=== PATIENT | male | born 1965 | race Two or more races ===

== ENCOUNTER 2019-01-22 11:44 | Day surgery (SDC) | payer MEDICAID ==
[~2019-01-22] VITALS: Ht 170.2 cm; Wt 103.3 kg
[2019-01-22] VITALS (9 sets, daily range): BP systolic 99–127; BP diastolic 66–83
[2019-01-22] MEDS ORDERED: cefazolin/dext.iso 2gm/100ml 100 ML IV ONE (12:10)
[2019-01-22] MEDS ORDERED: normal saline 1000ml 1,000 ML IV SCH ×2 (12:10→14:35)
[2019-01-22] MEDS ORDERED: ATOR40TA PO (12:32)
[2019-01-22] MEDS ORDERED: ASPI-1265 PO (12:32)
[2019-01-22] MEDS ORDERED: MELO-102 PO (12:32)
[2019-01-22] MEDS ORDERED: METF500T PO (12:32)
[2019-01-22] MEDS ORDERED: LISI10TA4 PO (12:32)
[2019-01-22] MEDS ORDERED: METO-395 PO (12:32)
[2019-01-22 13:00] LABS: BASOPHILS % (AUTO) 0.7 % (0-1); EOSINOPHILS # (AUTO) 0.1 X10'3 (0-0.9); EOSINOPHILS % (AUTO) 2.1 % (0-6); HEMATOCRIT 47.9 % (42.0-52.0); HEMOGLOBIN 15.7 g/dl (14.0-17.9); LYMPHOCYTES # (AUTO) 2.7 X10'3 (1.1-4.8); LYMPHOCYTES % (AUTO) 39.5 % (21-51); MEAN CORPUSCULAR HEMOGLOBIN 26.4 PG (27.0-31.0); MEAN CORPUSCULAR HGB CONC 32.7 g/dL (33.0-36.5); MEAN CORPUSCULAR VOLUME 80.9 FL (78-98); MEAN PLATELET VOLUME 9.5 FL (7.4-10.4); MONOCYTES # (AUTO) 0.8 X10'3 (0-0.9); MONOCYTES % (AUTO) 11.1 % (2-12); NEUTROPHILS # (AUTO) 3.2 X10'3 (1.8-7.7); NEUTROPHILS % (AUTO) 46.6 % (42-75); PLATELET COUNT 220 X10'3 (140-440); RED BLOOD COUNT 5.93 X10'6 (4.70-6.10); RED CELL DISTRIBUTION WIDTH 14.4 % (11.5-14.5); WHITE BLOOD COUNT 6.8 X10'3 (4.5-11.0)
[2019-01-22] MEDS ORDERED: fentaNYL/PF 50MCG/1 ML 2ML syringe ONE (13:04)
[2019-01-22] MEDS ORDERED: midazolam 2 mg/2 ml injection ONE ×2 (13:04→13:37)
[2019-01-22] MEDS ORDERED: lidocaine 1%/epinephrine 1:100,000 injection 50ml vial ONE (13:04)
[2019-01-22] MEDS ORDERED: clindamycin phosphate 150mg/ml inj. ONE (13:04)
[2019-01-22] MEDS ORDERED: clindamycin-Cleocin 900mg/D5W 50 ML IV ONE (13:05)
[2019-01-22 13:13] LABS: PARTIAL THROMBOPLASTIN TIME 29 SECONDS (22-32)
[2019-01-22 13:17] LABS: ANION GAP 9 (8-16); BLOOD UREA NITROGEN 14 MG/DL (7-18); BUN/CREATININE RATIO 19.7 (5.4-32.0); CALCIUM 9.1 MG/DL (8.5-10.1); CHLORIDE 107 MMOL/L (99-107); CREATININE 0.71 MG/DL (0.60-1.10); GLUCOSE 108 MG/DL (70-104); POTASSIUM 3.9 MMOL/L (3.5-5.1); SODIUM 141 MMOL/L (135-145); TOTAL CARBON DIOXIDE 25.4 MMOL/L (24-32); eGFR > 90 ML/MIN
[2019-01-22] MEDS ORDERED: ceFAZolin 1GM/D5W- ADD-VANTAGE 50 ML IV SCH (16:00)
[2019-01-22] MEDS ORDERED: HYDROcodone/acetaminophen 5mg/325mg tablet PO ONE (17:20)
== END 2019-01-22 17:25 | disposition home or self-care (01) ==
LOC: SSTAY O 11:44
PROVIDERS: ATTEND Internal Medicine Interventional Cardiology
DX: I50.9 Heart failure, unspecified (principal); I42.8 Other cardiomyopathies; I11.0 Hypertensive heart disease with heart failure; E11.51 Type 2 diabetes mellitus with diabetic peripheral angiopathy without gangrene; I25.2 Old myocardial infarction; Z87.891 Personal history of nicotine dependence; Z79.899 Other long term (current) drug therapy; Z79.82 Long term (current) use of aspirin; R07.9 Chest pain, unspecified; R06.00 Dyspnea, unspecified; I34.0 Nonrheumatic mitral (valve) insufficiency; R00.2 Palpitations
CPT/HCPCS: 33249; 36415; 80048; 85025; 85610; 85730; 93005; 99152; 99153; C1722; C1777; J2250; J3010; J3490; J7030; A4565; A4620

== ENCOUNTER 2023-05-23 13:08 | Day surgery (SDC) | payer MEDICARE, MEDICAID ==
[~2023-05-23] VITALS: Ht 170.2 cm; Wt 104.1 kg
[2023-05-23] VITALS (10 sets, daily range): BP systolic 101–111; BP diastolic 67–81; PULSE 62–69; RESP 12–15; TEMP 98.2; O2SAT 92–98
[~2023-05-23 13:08] MED LIST: ASPI-1265 PO; ATOR40TA PO; LISI10TA27 PO; MELO-102 PO; METF500T PO; METO-395 PO
[2023-05-23] MEDS ORDERED: LORazepam 0.5 MG tablet PO PRN (13:45)
[2023-05-23] MEDS ORDERED: normal saline 1,000 ML IV SCH (13:45)
[2023-05-23] MEDS ORDERED: diphenhydrAMINE 25mg capsule PO PRN (13:45)
[2023-05-23 14:23] LABS: BASOPHILS % (AUTO) 0.5 % (0-1); EOSINOPHILS # (AUTO) 0.2 X10'3 (0-0.9); EOSINOPHILS % (AUTO) 2.3 % (0-6); HEMATOCRIT 50.3 % (42.0-52.0); HEMOGLOBIN 16.5 g/dl (14.0-17.9); LYMPHOCYTES # (AUTO) 2.3 X10'3 (1.1-4.8); LYMPHOCYTES % (AUTO) 31.9 % (21-51); MEAN CORPUSCULAR HEMOGLOBIN 26.9 PG (27.0-31.0); MEAN CORPUSCULAR HGB CONC 32.8 g/dL (33.0-36.5); MONOCYTES # (AUTO) 0.9 X10'3 (0-0.9); NEUTROPHILS # (AUTO) 3.9 X10'3 (1.8-7.7); NEUTROPHILS % (AUTO) 53.3 % (42-75); PLATELET COUNT 199 X10'3 (140-440); RED BLOOD COUNT 6.13 X10'6 (4.70-6.10); RED CELL DISTRIBUTION WIDTH 14.9 % (11.5-14.5); WHITE BLOOD COUNT 7.4 X10'3 (4.5-11.0)
[2023-05-23 14:35] LABS: ALBUMIN 3.9 G/DL (3.4-5.0); ANION GAP 8 (8-16); BLOOD UREA NITROGEN 14 MG/DL (7-18); BUN/CREATININE RATIO 16.5 (10.0-20.0); CALCIUM 9.2 MG/DL (8.5-10.1); CHLORIDE 104 MMOL/L (99-107); CREATININE 0.85 MG/DL (0.60-1.10); GLUCOSE 101 MG/DL (70-104); SODIUM 139 MMOL/L (135-145); TOTAL CARBON DIOXIDE 27.2 MMOL/L (24-32); eCRCL 91 ML/MIN; eGFR > 90 ML/MIN
[2023-05-23 14:36] LABS: INR 1.1 INR; PROTHROMBIN TIME 11.6 SECONDS (9.0-12.0)
[2023-05-23] MEDS ORDERED: CARV25TA PO (14:36)
[2023-05-23] MEDS ORDERED: TRAM50TA2 PO (14:36)
[2023-05-23] MEDS ORDERED: ROSU40TA PO (14:36)
[2023-05-23] MEDS ORDERED: EMPA10TA PO (14:36)
[2023-05-23] MEDS ORDERED: SACU1TAB7 PO (14:36)
[2023-05-23] MEDS ORDERED: EZET10TA6 PO (14:36)
[2023-05-23] MEDS ORDERED: LIDOcaine 1% (10mg/ml) 2ml vial ONE (15:22)
[2023-05-23] MEDS ORDERED: verapamil 2.5 mg/ml inj IV ONE (15:22)
[2023-05-23] MEDS ORDERED: fentaNYL/PF 50MCG/1 ML 2ML syringe ONE (15:23)
[2023-05-23] MEDS ORDERED: heparin 1,000unit/ml 10ml vial 10 ML ONE (15:23)
[2023-05-23] MEDS ORDERED: midazolam 1 mg/ML 2ml injection ONE (15:23)
[2023-05-23] MEDS ORDERED: iohexol 350MG/ML 100ml bottle IV ONE ×2 (15:26→15:45)
[2023-05-23] MEDS ORDERED: clopidogrel 300mg tablet ONE (16:11)
[2023-05-23] MEDS ORDERED: proCHLORperazine 10 MG/2 ml inj IV PRN (17:05)
[2023-05-23] MEDS ORDERED: normal saline 1000ml 1,000 ML IV SCH (17:05)
[2023-05-23] MEDS ORDERED: HYDROcodone/acetaminophen 10/325mg tab PO PRN (17:05)
[2023-05-23] MEDS ORDERED: HYDROcodone/acetaminophen 5mg/325mg tablet PO PRN (17:05)
[2023-05-23] MEDS ORDERED: OXAZEpam 15mg capsule PO PRN (17:05)
[2023-05-23] MEDS ORDERED: ondansetron/PF 4mg/2ml inj IV PRN (17:05)
== END 2023-05-23 19:10 | disposition home or self-care (01) ==
LOC: SSTAY O 13:08
PROVIDERS: ATTEND Student in an Organized Health Care Education/Training Program
DX: R94.39 Abnormal result of other cardiovascular function study (principal); I25.10 Atherosclerotic heart disease of native coronary artery without angina pectoris; E78.5 Hyperlipidemia, unspecified; I42.9 Cardiomyopathy, unspecified; I11.0 Hypertensive heart disease with heart failure; I50.9 Heart failure, unspecified; E11.9 Type 2 diabetes mellitus without complications; G47.33 Obstructive sleep apnea (adult) (pediatric); Z88.0 Allergy status to penicillin; Z79.899 Other long term (current) drug therapy
CPT/HCPCS: 36415; 80048; 82948; 85025; 85610; 93005; 93458; 99152; 99153; A6258; C1874; C9600; J1644; J2250; J3490; J7030; Q0163; Q9967; A6402; C1725; C1751; C1769; C1894; J3010